=== PATIENT | male | born 1965 | race Caucasian/White ===

== ENCOUNTER 2018-12-25 15:14 | Outpatient (CLI) | payer OTHER ==
[~2018-12-25 15:14] MED LIST: DOXYCYCLINE HY100 MG PO; ULTRAM50 MG PO
== END 2018-12-25 15:17 | disposition home or self-care (01) ==
LOC: RAD 15:14
DX: R05 Cough (principal)

== ENCOUNTER → 2019-01-15 | Outpatient (CLI) | payer OTHER | END | disposition home or self-care (01) | LOC: RAD 15:39 | DX: R05 Cough (principal) ==

== ENCOUNTER 2019-08-27 08:23 | Outpatient (CLI) | payer OTHER ==
[~2019-08-27 08:23] MED LIST changes: +CELEBREX200MG PO
== END 2019-08-27 08:24 | disposition home or self-care (01) ==
LOC: SONOGRAMA 08:23
PROVIDERS: ATTEND Physical Medicine & Rehabilitation
DX: M75.41 Impingement syndrome of right shoulder (principal)

== ENCOUNTER 2020-11-14 07:45 | Outpatient (CLI) | payer OTHER ==
[~2020-11-14 07:45] MED LIST changes: +DICLOFENAC POTA50 MG PO
== END 2020-11-14 07:46 | disposition home or self-care (01) ==
LOC: NUCLEAR 07:45
PROVIDERS: ATTEND Internal Medicine Cardiovascular Disease
DX: I25.10 Atherosclerotic heart disease of native coronary artery without angina pectoris (principal)
CPT/HCPCS: 78452; 93017; A9500

== ENCOUNTER 2021-03-10 08:00 | Outpatient (CLI) | payer OTHER | END 2021-03-10 08:30 | disposition home or self-care (01) | LOC: PPH VACUNA 08:00 | PROVIDERS: ATTEND Emergency Medicine Pediatric Emergency Medicine | DX: Z23 Encounter for immunization (principal) ==

== ENCOUNTER 2021-04-08 07:49 | Outpatient (CLI) | payer OTHER | END 2021-04-08 07:58 | disposition home or self-care (01) | LOC: LAB 07:49 | PROVIDERS: ATTEND Urology | DX: N40.1 Benign prostatic hyperplasia with lower urinary tract symptoms (principal) ==

== ENCOUNTER 2021-10-02 08:57 | Outpatient (CLI) | payer OTHER | END 2021-10-02 09:00 | disposition home or self-care (01) | LOC: RAD 08:57 | PROVIDERS: ATTEND Physical Medicine & Rehabilitation | DX: M17.11 Unilateral primary osteoarthritis, right knee (principal); M17.12 Unilateral primary osteoarthritis, left knee ==

== ENCOUNTER 2022-06-16 09:12 | Outpatient (CLI) | payer OTHER | END 2022-06-16 09:25 | disposition home or self-care (01) | LOC: RAD 09:12 | PROVIDERS: ATTEND Physical Medicine & Rehabilitation | DX: M25.512 Pain in left shoulder (principal); M17.0 Bilateral primary osteoarthritis of knee ==

== ENCOUNTER 2023-02-01 07:34 | Outpatient (CLI) | payer OTHER | END 2023-02-01 07:47 | disposition home or self-care (01) | LOC: RAD 07:34 | PROVIDERS: ATTEND Physical Medicine & Rehabilitation | DX: M17.0 Bilateral primary osteoarthritis of knee (principal); Z88.0 Allergy status to penicillin; Z88.1 Allergy status to other antibiotic agents ==

== ENCOUNTER 2024-06-07 14:32 | Emergency (ER) | payer OTHER ==
[~2024-06-07] VITALS: Ht 172.7 cm; Wt 75.3 kg
[2024-06-07] MEDS ORDERED: TAMS0.4C PO (14:56)
[2024-06-07] MEDS ORDERED: KETOROLAC TROMETHAMINE 60 MG VIAL IM ONE ×2 (15:15→15:48)
[2024-06-07 16:12] LABS: URINE APPEARANCE Clear; URINE BILIRRUBIN Negative (NEGATIVE); URINE BLOOD Negative; URINE COLOR Yellow; URINE GLUCOSE Negative (NEGATIVE); URINE KETONE Negative (NEGATIVE); URINE LEUKOCYTE Negative; URINE NITRATE Negative; URINE PROTEIN Negative (NEGATIVE); URINE UROBILINOGEN 0.2 E.U./dl
[2024-06-07 16:12] LABS: HEMATOCRIT 44.5 % (39.0-48.0); HEMOGLOBIN 15.2 g/dL (13-16.00); MEAN CORPUSCULAR HEMOGLOBIN 31.1 pg (27.00-32.0); MEAN CORPUSCULAR HGB CONC 34.2 g/dl (32.0-36.0); PLATELET COUNT 198 K/uL (150-450); RED BLOOD COUNT 4.88 M/uL (4.00-6.00); RED CELL DISTRIBUTION WIDTH 13.4 % (11.5-14.5)
[2024-06-07 16:37] LABS: URINE BACTERIA 13.4 uL (0.0-1933); URINE WBC 4.7 uL (0.0-23.2)
[2024-06-07 16:38] LABS: URINE CAST 0.29 uL (0.0-1.40); URINE EPITHELIAL CELLS 1.2 uL (0.0-38.8); URINE RBC 0.4 uL (0.0-20.8)
[2024-06-07] MEDS ORDERED: DEXAMETHASONE SODIUM PHOSPHATE 4 MG/ML VIAL IM ONE (18:00)
[2024-06-07] MEDS ORDERED: TRAMADOL HCL 50 MG TABLET PO ONE (18:00)
[2024-06-07] MEDS ORDERED: ORPHENADRINE CITRATE 30 MG/ML AMPUL IM ONE (18:00)
[2024-06-07] MEDS ORDERED: ORPHENADRINE CITRATE 30 MG/ML AMPUL ONE (18:09)
[2024-06-07] MEDS ORDERED: DEXAMETHASONE SODIUM PHOSPHATE 4 MG/ML VIAL ONE (18:09)
== END 2024-06-07 18:23 | disposition home or self-care (01) ==
LOC: ER 14:35
PROVIDERS: Emergency Medicine
DX: R07.9 Chest pain, unspecified (principal); Z88.0 Allergy status to penicillin; Z88.8 Allergy status to other drugs, medicaments and biological substances